=== PATIENT | female | born 1990 | race Two or more races ===

== ENCOUNTER 2017-09-15 09:53 | Emergency (ER) | payer OTHER ==
[2017-09-15 10:04] VITALS: RESP 18; TEMP 98.1; O2SAT 97
[2017-09-15 11:00] LABS: PLATELET COUNT 258 10^3/uL (150-400)
--- NOTE | 2017-09-15 11:08 | EDPHY ---
H & P Stated Complaint: upper abd pain/family hx gallbladder issues nausea Time Seen by Provider: 09/15/17 10:54 HPI/ROS: CHIEF COMPLAINT: Epigastric pain since this morning HISTORY OF PRESENT ILLNESS: 27-year-old female complaining of epigastric pain with nausea since this morning approximately 7:00 a.m.. She is concerned about possible biliary etiology noting that her sister had recent cholecystectomy. No prior history of similar. No radiation of pain. No chronic drug or alcohol use. No dyspnea. No chest pain. No immobilization. No malignancy history. REVIEW OF SYSTEMS: A ten point review of systems was performed and is negative with the exception of the items mentioned in the HPI PAST MEDICAL & SURGICAL HISTORY: no exogenous estrogen use SOCIAL HISTORY:Nonsmoker. PHYSICAL EXAM (Prior to examination, patient consented to physical exam, hands were washed and my usual and customary physical exam procedures followed) 1) GENERAL: Alert and oriented. Appears to be in no acute distress. 2) HEAD: Normocephalic, atraumatic 3) HEENT: Pupils equal, round, reactive to light bilaterally. Sclera anicteric. Nasopharynx, oropharynx, clear, no lesions. Ears bilaterally with normal tympanic membranes. 4) NECK: Full range of motion, no meningeal signs. 5) LUNGS: Clear auscultation bilaterally, no wheezes, no rhonchi, no retractions. 6) HEART: Regular rate and rhythm, no murmur, no heave, no gallop. 7) ABDOMEN: No guarding, tender to palpation epigastrium and right upper quadrant negative McBurney's, negative Rovsing's, negative peritoneal sign, 8) MUSCULOSKELETAL: Moving all extremities, no focal areas of tenderness, no obvious trauma. No peripheral edema or discoloration. 9) BACK: No CVA tenderness, no midline vertebral tenderness, no fluctuance, no step-off, no obvious trauma, no visual or palpable abnormality. 10) SKIN: No rash, no petechiae. 11) Psychiatric: Patient is oriented X 3, there is no agitation. DIFFERENTIAL DIAGNOSIS: In no particular order, including but not limited to biliary colic, cholecystitis, peptic ulcer disease, pancreatitis, and gastroenteritis. This is a partial list of diagnoses considered. These considerations are based on history, physical exam, past history and reassessment. - Personal History LMP (Females 10-55): 8-14 Days Ago Current Tetanus/Diphtheria Vaccine: Unsure - Medical/Surgical History Hx Asthma: No Hx Chronic Respiratory Disease: No Hx Diabetes: No Hx Cardiac Disease: No Hx Renal Disease: No Hx Cirrhosis: No Hx Alcoholism: No Hx HIV/AIDS: No Hx Splenectomy or Spleen Trauma: No Other PMH: NEGATIVE - Social History Smoking Status: Never smoked Constitutional: Initial Vital Signs Temperature (C) 36.7 C 09/15/17 10:02 Heart Rate 65 09/15/17 10:02 Respiratory Rate 18 09/15/17 10:02 Blood Pressure 116/83 H 09/15/17 10:02 O2 Sat (%) 97 09/15/17 10:02 O2 Delivery Mode Room Air Allergies/Adverse Reactions: No Known Allergies Allergy (Verified 09/15/17 10:01) Home Medications: Medication Instructions Recorded Pantoprazole Sodium [Protonix 40mg 40 mg PO DAILY #30 tab 09/15/17 (RX)] Medical Decision Making - Diagnostics Imaging Results: Imaging Impressions Abdomen Ultrasound 09/15/17 11:06 Impression: 7mm gallbladder polyp. Recommend follow-up ultrasound in one year to assess for stability. Results discussed with HELEN Cárdenas. Images reviewed myself ED Course/Re-evaluation: 11:07 a.m.: Care of patient under supervision of secondary supervising physician Dr Kang . . Will obtain diagnostic studies including gallbladder ultrasound. At this time I think that possible etiologies for her epigastric pain such as cardiac and/or pulmonary etiology, pulmonary infiltrate, pulmonary embolus, a less than likely given her lack of risk factors.. 1:00 p.m.: Re-evaluation, patient states that she is feeling improvement after GI cocktail. I discussed discussed her imaging results. Doubt acute cholecystitis, doubt acute pancreatitis, doubt PE, doubt OH. Discussed possible peptic ulcer disease. I have recommended proton pump inhibitor, usual customary dietary precautions provided. Recommend follow up with PCP as she may necessitate follow up with Gastroenterology. Definitely should she develop new or worsening symptoms to return to the ER immediately for re-evaluation. She feels comfortable being discharged. - Data Points Laboratory Results: Laboratory Results 09/15/17 10:31 09/15/17 10:31 09/15/17 09/15/17 03/01/18 10:31 10:31 10:31 WBC 5.84 10^3/uL 10^3/uL (3.80-9.50) RBC 4.22 10^6/uL 10^6/uL (4.18-5.33) Hgb 10.1 g/dL L g/dL (12.6-16.3) Hct 31.5 % L % (38.0-47.0) MCV 74.6 fL L fL (81.5-99.8) MCH 23.9 pg L pg (27.9-34.1) MCHC 32.1 g/dL L g/dL (32.4-36.7) RDW 17.2 % H % (11.5-15.2) Plt Count 258 10^3/uL 10^3/uL (150-400) MPV 9.3 fL fL (8.7-11.7) Neut % (Auto) 58.5 % % (39.3-74.2) Lymph % (Auto) 30.0 % % (15.0-45.0) [place] % (Auto) 9.1 % % (4.5-13.0) Eos % (Auto) 1.7 % % (0.6-7.6) Baso % (Auto) 0.5 % % (0.3-1.7) Nucleat RBC Rel Count 0.0 % % (0.0-0.2) Absolute Neuts (auto) 3.42 10^3/uL 10^3/uL (1.70-6.50) Absolute Lymphs (auto) 1.75 10^3/uL 10^3/uL (1.00-3.00) Absolute Monos (auto) 0.53 10^3/uL 10^3/uL (0.30-0.80) Absolute Eos (auto) 0.10 10^3/uL 10^3/uL (0.03-0.40) Absolute Basos (auto) 0.03 10^3/uL 10^3/uL (0.02-0.10) Absolute Nucleated RBC 0.00 10^3/uL 10^3/uL (0-0.01) Immature Gran % 0.2 % % (0.0-1.1) Immature Gran # 0.01 10^3/uL 10^3/uL (0.00-0.10) Sodium 141 mEq/L mEq/L (135-145) Potassium 3.9 mEq/L mEq/L (3.5-5.2) Chloride 106 mEq/L mEq/L (97-110) Carbon Dioxide 23 mEq/l mEq/l (22-31) Anion Gap 12 mEq/L mEq/L (8-16) BUN 12 mg/dL mg/dL (7-23) Creatinine 0.6 mg/dL mg/dL (0.6-1.0) Estimated GFR > 60 Glucose 90 mg/dL mg/dL (70-100) Calcium 9.0 mg/dL mg/dL (8.5-10.4) Total Bilirubin 0.3 mg/dL mg/dL (0.1-1.4) Conjugated Bilirubin 0.2 mg/dL mg/dL (0.0-0.5) Unconjugated Bilirubin 0.1 mg/dL mg/dL (0.0-1.1) AST 26 IU/L IU/L (14-46) ALT 27 IU/L IU/L (9-52) Alkaline Phosphatase 67 IU/L IU/L (38-126) Total Protein 7.2 g/dL g/dL (6.3-8.2) Albumin 4.0 g/dL g/dL (3.5-5.0) Lipase 99 IU/L IU/L (23-300) Beta HCG, Qual NEGATIVE Medications Given: Discontinued Medications Al Hydroxide/Mg Hydroxide (Maalox Susp) 30 ml PO ONCE ONE Stop: 09/15/17 11:47 Last Admin: 09/15/17 12:09 Dose: 30 ml Hyoscyamine Sulfate (Levsin, Hyomax-Sl) 0.25 mg PO ONCE ONE Stop: 09/15/17 11:47 Last Admin: 09/15/17 12:09 Dose: 0.25 mg Lidocaine (Lidocaine 2% Viscous) 15 ml PO ONCE ONE Stop: 09/15/17 11:47 Last Admin: 09/15/17 12:09 Dose: 15 ml Departure - Departure Disposition: Home, Routine, Self-Care Clinical Impression: Epigastric pain Condition: Good Instructions: Epigastric Pain (ED) Additional Instructions: Seek immediate medical attention if you develop new or worsening symptoms, if you develop fevers, chills, inability to tolerate oral intake or any other symptoms that concerns you. Do not eat spicy foods, alcohol, chocolate, carbonated beverages. Referrals: Aaliyah Sanchez MD [Primary Care Provider] - 2-3 days, call for appt. Prescriptions: Pantoprazole Sodium [Protonix 40mg (RX)] 40 mg PO DAILY #30 tab
[2017-09-15] MEDS ORDERED: MAG HYDROX/AL HYDROX/SIMETH 30 ML UDCUP PO ONE (11:46)
[2017-09-15] MEDS ORDERED: HYOSCYAMINE SULFATE 0.125 MG TAB PO ONE (11:46)
[2017-09-15] MEDS ORDERED: LIDOCAINE 2% VISCOUS 15 ML UDCUP PO ONE (11:46)
[2017-09-15 13:26] VITALS: BP 110/70; PULSE 59
== END 2017-09-15 13:25 | disposition home or self-care (01) ==
DX: R10.13 Epigastric pain (principal)

== ENCOUNTER → 2018-10-16 | Outpatient (CLI) | payer OTHER | LOC: FIMAGING 09:11 | PROVIDERS: ATTEND Internal Medicine | DX: K82.4 Cholesterolosis of gallbladder (principal) ==